=== PATIENT | male | born 1995 | race Caucasian/White ===

== ENCOUNTER 2021-04-15 11:34 | Emergency (ER) | payer SELFPAY ==
--- NOTE | 2021-04-15 12:51 | CR ---
Chest: Frontal view of the chest was obtained. Comparison: No prior chest imaging is available. Heart size and mediastinum are within normal limits. Lungs are clear with no acute parenchymal change. No acute osseous abnormality is appreciated. Impression: 1. Nothing acute is seen on frontal chest x-ray. Diagnostic code #1
[2021-04-15 13:04] LABS: CORONAVIRUS COVID-19 NAA POSITIVE (NEGATIVE)
--- NOTE | 2021-04-15 13:17 | EDM.PDOC ---
ED HPI GENERAL MEDICAL PROBLEM - General Chief Complaint: Respiratory Problem Stated Complaint: COUGH Time Seen by Provider: 04/15/21 11:43 Source of Information: Reports: Patient, RN Notes Reviewed History Limitations: Reports: No Limitations - History of Present Illness INITIAL COMMENTS - FREE TEXT/NARRATIVE: Patient is a 25-year-old male presenting to the emergency department with complaints of a 3-day history of cough and nasal congestion. Been using any [id number] treatments for this. He denies any chest pain, shortness of breath, fever, chills, nausea, vomiting, or diarrhea. Patient reports he had Covid" December or January ". He is not vaccinated against Covid. Denies any chronic underlying medical conditions. Treatments HEALTH TECH: Reports: Other (see below) Other Treatments HEALTH TECH: none - Related Data Allergies Allergy/AdvReac Type Severity Reaction Status Date / Time No Known Allergies Allergy Verified 04/15/21 11:48 Home Meds: Home Meds dexAMETHasone [Decadron] 6 mg PO DAILY #5 tablet 04/15/21 [Rx] Past Medical History - Past Health History Medical/Surgical History: Denies Medical/Surgical History - Infectious Disease History Infectious Disease History: Reports: Novel Coronavirus Social & Family History - Tobacco Use Tobacco Use Status *Q: Current Every Day Tobacco User Years of Tobacco use: 6 Packs/Tins Daily: 1 - Caffeine Use Caffeine Use: Reports: Energy Drinks, Soda - Recreational Drug Use Recreational Drug Use: No ED ROS GENERAL - Review of Systems Review Of Systems: Comprehensive ROS is negative, except as noted in HPI. ED EXAM, GENERAL - Physical Exam Exam: See Below Exam Limited By: No Limitations General Appearance: Alert, WD/WN, No Apparent Distress Respiratory/Chest: No Respiratory Distress, Lungs Clear, Normal Breath Sounds, No Accessory Muscle Use, Chest Non-Tender Cardiovascular: Normal Peripheral Pulses, Regular Rate, Rhythm, No Edema, No Gallop, No JVD, No Murmur, No Rub GI/Abdominal: Normal Bowel Sounds, Soft, Non-Tender, No Organomegaly, No Distention, No Abnormal Bruit, No Mass Neurological: Alert, Oriented, CN II-XII Intact, Normal Cognition, Normal Gait, Normal Reflexes, No Motor/Sensory Deficits Psychiatric: Normal Affect, Normal Mood Skin Exam: Warm, Dry, Intact, Normal Color, No Rash Course - Vital Signs Last Recorded V/S: Last Vital Signs Temp 97.5 F 04/15/21 11:51 Pulse 62 04/15/21 11:51 Resp 20 04/15/21 11:51 BP 143/70 H 04/15/21 11:51 Pulse Ox 97 04/15/21 11:51 - Orders/Labs/Meds Orders: Active Orders 24 hr Category Date Time Status COVID-19/FLU A+B [[facility]] Stat Lab 04/15/21 11:55 Results Labs: Laboratory Tests 04/15/21 Range/Units 11:55 SARS-CoV-2 RNA ([facility]) Positive H (NEGATIVE) - Re-Assessments/Exams Free Text/Narrative Re-Assessment/Exam: Patient is a 25-year-old male presenting to the emergency department with complaints of cough and congestion. This is been around for 3 days. Denies any other complaints. Lung sounds are clear to auscultation. Oxygen saturations were 97% on room air on arrival to ER. Have ordered chest x-ray, and Covid and influenza testing. 04/15/21 13:20 Chest x-ray shows no acute abnormalities. Covid is positive. It is possible this could still be positive from his previous infection, it is unlikely. This is likely reinfection of Covid. I will put him on a course of dexamethasone and provide him a note off from work. Discussed isolation and return precautions and he verbalized understanding. Discharge instructions as document. Departure - Departure Time of Disposition: 13:21 Disposition: Home, Self-Care 01 Condition: Good Clinical Impression: COVID-19 - Discharge Information Prescriptions: dexAMETHasone [Decadron] 6 mg PO DAILY #5 tablet Instructions: COVID-19 Referrals: PCP,None [Primary Care Provider] - Forms: ED Department Discharge, ED Return to Work/School Form Additional Instructions: Take the dexamethasone as prescribed. Use Tylenol and ibuprofen as needed for fever discomfort. Increase intake of oral fluids. You must quarantine for 10 days from the onset of symptoms and until symptoms are improving and you are fever free for 24 hours. Return to ER for any new or worsening symptoms. Sepsis Event Note (ED) - Focused Exam Vital Signs: Vital Signs Temp Pulse Resp BP Pulse Ox 04/15/21 11:51 97.5 F 62 20 143/70 H 97 - My Orders Last 24 Hours: My Active Orders 04/15/21 11:55 COVID-19/FLU A+B [[facility]] Stat - Assessment/Plan Last 24 Hours: My Active Orders 04/15/21 11:55 COVID-19/FLU A+B [[facility]] Stat
== END 2021-04-15 12:35 | disposition home or self-care (01) ==
LOC: JD.ED 11:34
DX: U07.1 COVID-19 (principal); Z72.0 Tobacco use
CPT/HCPCS: 0240U; 71045; 99283

== ENCOUNTER 2022-04-12 10:17 | Emergency (ER) | payer SELFPAY ==
[2022-04-12] MEDS ORDERED: HYDROmorphone 0.5 MG/0.5 ML Syringe IM ONE (12:18)
== END 2022-04-12 12:48 | disposition home or self-care (01) ==
LOC: JD.ED 10:17
DX: K08.89 Other specified disorders of teeth and supporting structures (principal); Z72.0 Tobacco use; Z86.16 Personal history of COVID-19
CPT/HCPCS: 96372; 99282; J1170

== ENCOUNTER 2022-08-16 12:27 | Emergency (ER) | payer SELFPAY ==
[2022-08-16 13:38] LABS: ESTIMATED GFR 106 mL/min (>60)
[2022-08-16] MEDS ORDERED: Ketorolac 60 MG/2 ML SDV IM ONE (14:03)
[2022-08-16] MEDS ORDERED: predniSONE 10 MG Tab PO ONE (14:06)
== END 2022-08-16 14:35 | disposition home or self-care (01) ==
LOC: JD.ED 12:27
DX: M25.561 Pain in right knee (principal); M25.562 Pain in left knee; Z88.5 Allergy status to narcotic agent; Z86.16 Personal history of COVID-19
CPT/HCPCS: 36415; 80053; 85025; 86140; 96372; 99283; J1885; J7512

== ENCOUNTER 2023-01-09 10:28 | Emergency (ER) | payer SELFPAY | END 2023-01-09 12:30 | disposition home or self-care (01) | LOC: JD.ED 10:28 | DX: J06.9 Acute upper respiratory infection, unspecified (principal); F17.210 Nicotine dependence, cigarettes, uncomplicated; Z20.822 Contact with and (suspected) exposure to COVID-19; Z86.16 Personal history of COVID-19; Z79.899 Other long term (current) drug therapy; Z88.5 Allergy status to narcotic agent | CPT/HCPCS: 71045; 71045-26; 87804; 99282; 99283; U0002 ==

== ENCOUNTER 2023-09-12 16:50 | Emergency (ER) | payer BC, MEDICAID ==
[2023-09-12 18:01] LABS: CORONAVIRUS COVID-19 NAA NEGATIVE (NEGATIVE); INFLUENZA A NAA NEGATIVE (NEGATIVE); RESPIRATORY SYNCYTIAL VIR NAA NEGATIVE (NEGATIVE)
[2023-09-12] MEDS: Oseltamivir 75 MG Cap PO ONE (18:29)
== END 2023-09-12 18:32 | disposition home or self-care (01) ==
LOC: JD.ED 16:50
DX: J10.1 Influenza due to other identified influenza virus with other respiratory manifestations (principal); Z88.6 Allergy status to analgesic agent; Z86.16 Personal history of COVID-19
CPT/HCPCS: 0241U; 71046; 99285; A9270